=== PATIENT | female | born 1970 | race Caucasian/White ===

== ENCOUNTER 2019-02-14 22:39 | Emergency (ER) | payer OTHER, MEDICAID ==
[~2019-02-14] VITALS: Ht 157.5 cm; Wt 93.0 kg
[~2019-02-14 22:39] MED LIST: AMITRIPTYLINE H25 M2 PO; ASPIR 8181 MG PO; CIPRO500 M1 PO; CLEOCIN HCL300 MG PO; HYDROCODON-ACE1 EAC7 PO; QUASENSE1 EACH PO; ZANTAC 150MG T150 MG PO; ZOFRAN ODT4 MG PO; ZOLOFT50 MG PO
[2019-02-14] MEDS ORDERED: BACTRIM DS TAB1 EAC1 PO (23:41)
[2019-02-14] MEDS ORDERED: NORCO 5-325 TA1 EAC1 PO (23:41)
[2019-02-14 23:51] VITALS: BP 150/88
== END 2019-02-14 23:51 | disposition home or self-care (01) ==
LOC: M.ERS 22:39
DX: L03.211 Cellulitis of face (principal); N80.9 Endometriosis, unspecified; Z98.890 Other specified postprocedural states